=== PATIENT | male | born 1975 | race Caucasian/White ===

== ENCOUNTER 2016-09-26 12:05 | Emergency (ER) | payer SELFPAY ==
[2016-09-26 12:11] VITALS: BP 139/64; PULSE 88; TEMP 98; O2SAT 99; BMI 34.3
--- NOTE | 2016-09-26 12:39 | ED PDOC ---
HPI: Male Pain <Bassam Wiley - Last Filed: 09/29/16 11:08> Chief Complaint (Provider): Male Genitourinary History Per: Patient History/Exam Limitations: no limitations Onset/Duration Of Symptoms: Days (x7) Current Symptoms Are (Timing): Still Present Additional Complaint(s): Jasson Borja is a 41 year old male with a chief complaint of penile discharge and dysuria that he has been experiencing for the past week. Patient reports that he engaged in unprotected sex with two male partners before the onset of his symptoms. He denies any nausea and vomiting, and has been drinking normally. <Beverly Crwaford - Last Filed: 09/30/16 05:15> Time Seen by Provider: 09/26/16 12:18 Chief Complaint (Nursing): Male Genitourinary Past Medical History Vital Signs: Last Vital Signs Temp 98 F 09/26/16 12:10 Pulse 88 09/26/16 12:10 Resp BP 139/64 09/26/16 12:10 Pulse Ox 99 09/26/16 12:40 <Bassam Wiley E - Last Filed: 09/29/16 11:08> Reviewed: Historical Data, Nursing Documentation, Vital Signs Vital Signs: Last Vital Signs Temp 98 F 09/26/16 12:10 Pulse 88 09/26/16 12:10 Resp BP 139/64 09/26/16 12:10 Pulse Ox 99 09/26/16 12:10 - Medical History PMH: Asthma - Family History Family History: States: Unknown Family Hx - Living Arrangements Living Arrangements: With Family - Social History Current smoker - smoking cessation education provided: No <Beverly Crawford - Last Filed: 09/30/16 05:15> - Home Medications Home Medications: Ambulatory Orders Medication Instructions Recorded Clindamycin [Cleocin] 300 mg PO Q8 #9 cap 11/28/15 Doxycycline Hyclate [Doryx] 100 mg PO BID #14 cap 09/26/16 - Allergies Allergies/Adverse Reactions: Allergies Allergy/AdvReac Type Severity Reaction Status Date / Time Penicillins Allergy RASH Verified 09/26/16 12:19 Review of Systems Gastrointestinal: Negative for: Nausea, Vomiting Genitourinary Male: Positive for: Dysuria, Penile Discharge <Beverly Crawford - Last Filed: 09/30/16 05:15> Physical Exam - Reviewed Nursing Documentation Reviewed: Yes Vital Signs Reviewed: Yes - Physical Exam Appears: Positive for: Non-toxic, No Acute Distress Head Exam: Positive for: ATRAUMATIC, NORMOCEPHALIC Skin: Positive for: Normal Color, Warm Cardiovascular/Chest: Positive for: Regular Rate, Rhythm. Negative for: Murmur Respiratory: Positive for: Normal Breath Sounds. Negative for: Wheezing Male Genital Exam: Positive for: normal genitalia Neurologic/Psych: Positive for: Alert, Oriented. Negative for: Motor/Sensory Deficits <Beverly Crawford - Last Filed: 09/30/16 05:15> - ECG O2 Sat by Pulse Oximetry: 99 (RA) Pulse Ox Interpretation: Normal <Beverly Crawford - Last Filed: 09/30/16 05:15> Medical Decision Making Medical Decision Making: Impression: Possible Chlamydia Plan: * Chlamydia GC/RNA, TMA * Urine Culture * Reevaluation Scribe Attestation: Documented by Sole Knapp, acting as a scribe for Beverly Crawford PA-C. Provider Scribe Attestation: All medical record entries made by the Scribe were at my direction and personally dictated by me. I have reviewed the chart and agree that the record accurately reflects my personal performance of the history, physical exam, medical decision making, and the department course for this patient. I have also personally directed, reviewed, and agree with the discharge instructions and disposition. <Beverly Crawford - Last Filed: 09/30/16 05:15> Disposition <Bassam Wiley - Last Filed: 09/29/16 11:08> - Disposition Disposition: Routine/Home Disposition Time: 13:22 <Beverly Crawford - Last Filed: 09/30/16 05:15> - Clinical Impression Clinical Impression: Penile discharge - Disposition Referrals: [facility] [place] [Outside] Condition: STABLE Prescriptions: Doxycycline Hyclate [Doryx] 100 mg PO BID #14 cap Instructions: Sexually Transmitted Diseases (ED), Safe Sex (ED) Addendum Addendum: 09/29/16 11:08 +GC/Chlamydia. Pt. given only zithromax in ED. Attempted to call pt. but no answer or voicemail. 2nd attempt is to be made. <Bassam Wiley E - Last Filed: 09/29/16 11:08> Addendum: 09/30/16 05:14 Pt allergic to PCN - Given Rx for doxy <Beverly Crawford - Last Filed: 09/30/16 05:15>
== END 2016-09-26 12:58 | disposition home or self-care (01) ==
LOC: H.ER 12:05
DX: A74.9 Chlamydial infection, unspecified (principal)